=== PATIENT | female | born 1950 | race Caucasian/White ===

== ENCOUNTER 2018-01-04 08:54 | Inpatient (IN) | payer MEDICARE ==
[~2018-01-04] VITALS: Ht 175.3 cm; Wt 74.6 kg
[~2018-01-04 08:54] MED LIST: FENO67CA PO; GLIM2TAB3 PO; PRAV20TA4 PO; QUIN5TAB12 PO; [UNRECOGNIZED DRUG - CODE] PO
[2018-01-04] MEDS ORDERED: ONDANSETRON ODT 4 MG TAB ONE (09:32)
[2018-01-04] MEDS ORDERED: SODIUM CHLORIDE 0.9% 1000ML 1,000 ML IV ONE (09:32)
[2018-01-04 09:35] LABS: BASOPHILS % (AUTO) 0.1 % (0.0-5.0); HEMATOCRIT 44.9 % (36-48); LYMPHOCYTES % (AUTO) 9.9 % (21.0-51.0); MEAN CORPUSCULAR HEMOGLOBIN 29.6 pg (27.0-33.0); MEAN CORPUSCULAR HGB CONC 34.1 g/dL (32.0-36.0); MEAN CORPUSCULAR VOLUME 86.7 fL (79-99); MONOCYTES % (AUTO) 13.3 % (3.0-13.0); NEUTROPHILS % (AUTO) 76.7 % (40.0-77.0); PLATELET COUNT (AUTO) 391 K/uL (130-400); RED BLOOD CELL COUNT(AUTO) 5.18 MIL/uL (4.00-5.50); RED CELL DISTRIBUTION WIDTH 13.7 % (11.0-15.5); WHITE BLOOD COUNT (AUTO) 9.2 K/uL (4.8-10.8)
[2018-01-04 09:50] LABS: RAPID GROUP A STREP POSITIVE (NEGATIVE)
[2018-01-04] MEDS ORDERED: MORPHINE SULFATE 4 MG/1ML SYG ONE (09:51)
[2018-01-04 10:05] LABS: CREATINE KINASE MB < 0.5 ng/mL (0.5-3.6); LIPASE 100 U/L (114-286)
[2018-01-04 10:06] LABS: INR 1.01 (0.85-1.15); PARTIAL THROMBOPLASTIN TIME 25.2 SEC (26.3-35.5); PROTHROMBIN TIME 10.6 SEC (9.6-11.6)
[2018-01-04] MEDS ORDERED: METRONIDAZOLE 500 MG TABLET ONE (10:48)
[2018-01-04] MEDS ORDERED: CEFTRIAXONE SODIUM 1 GM ONE (10:56)
[2018-01-04 10:57] LABS: POTASSIUM 4.8 mmol/L (3.5-5.1)
[2018-01-04] MEDS ORDERED: IOPAMIDOL-370 75 ML VIAL IV ONE (11:23)
[2018-01-04] MEDS: SODIUM CHLORIDE 0.9% 1000ML 1,000 ML IV SCH (13:14)
[2018-01-04] MEDS ORDERED: LIDOCAINE HCL-MPF 1% 2ML VIAL IVP PRN (13:15)
[2018-01-04] MEDS ORDERED: MAG HYDROX/AL HYDROX/SIMETH ES 30 ML SUSP UDCUP PO PRN (13:15)
[2018-01-04] MEDS ORDERED: GUAIFENESIN-DM 200/20 MG 10 ML PO PRN (13:15)
[2018-01-04] MEDS: METRONIDAZOLE 500MG/100ML BAG 100 ML IV SCH ×2 (13:15→19:37)
[2018-01-04] MEDS ORDERED: POTASSIUM CHLORIDE 20MEQ/100ML 100 ML IV PRN (13:15)
[2018-01-04] MEDS ORDERED: LACTULOSE 20 GM/30 ML UDCUP PO PRN (13:15)
[2018-01-04] MEDS ORDERED: HYDRALAZINE HCL 20 MG/ML VIAL IV PRN (13:15)
[2018-01-04] MEDS ORDERED: ACETAMINOPHEN-CODEINE 300/30MG TAB PO PRN ×2 (13:15)
[2018-01-04] MEDS ORDERED: POTASSIUM CHLORIDE 10% ELIXIR 20 MEQ/15 ML UDCUP PO PRN (13:15)
[2018-01-04] MEDS ORDERED: ACETAMINOPHEN 325 MG TAB PO PRN (13:15)
[2018-01-04] MEDS ORDERED: NITROGLYCERIN 0.4 MG SL TAB SL PRN (13:15)
[2018-01-04 15:00] VITALS: BP 140/74
[2018-01-04] MEDS: LEVOFLOXACIN 500 MG/D5W 100 ML 100 ML IV SCH (16:44)
[2018-01-04] MEDS: METOCLOPRAMIDE 10 MG/2 ML VIAL IVP SCH (16:50)
[2018-01-04] MEDS: MORPHINE SULFATE 4 MG/1ML SYG IV PRN (16:50)
[2018-01-04] MEDS ORDERED: FAMOTIDINE/PF 20 MG/2 ML VIAL IV ONE (19:18)
[2018-01-04] MEDS: FAMOTIDINE/PF 20 MG/2 ML VIAL IV SCH (19:37)
[2018-01-04 20:00] VITALS: BP 153/77
[2018-01-04] MEDS ORDERED: LORAZEPAM 2 MG/ML 1 ML VIAL IVP ONE (23:45)
[2018-01-05] VITALS: BP 134/75
[2018-01-05] MEDS ORDERED: LORAZEPAM 2 MG/ML 1 ML VIAL ONE ×2 (01:13→23:09)
[2018-01-05] MEDS: SODIUM CHLORIDE 0.9% 1000ML 1,000 ML IV SCH ×2 (01:19→17:58)
[2018-01-05 01:31] LABS: BILIRUBIN,URINE Negative (NEGATIVE); COLOR,URINE Dark Yellow (YELLOW); GLUCOSE, URINE (UA) >=1000 mg/dL (NEGATIVE); KETONES,URINE 15 mg/dL (NEGATIVE); LEUKOCYTE ESTERASE ,URINE Trace (NEGATIVE); NITRATE,URINE Negative (NEGATIVE); OCCULT BLOOD,URINE Negative (NEGATIVE); PROTEIN,URINE Trace (NEGATIVE)
[2018-01-05 01:33] LABS: APPEARANCE,URINE SLIGHTLY CLOUDY (CLEAR)
[2018-01-05 01:40] LABS: BACTERIA,URINE None Seen /HPF (None Seen); MUCUS,URINE Rare LPF (None Seen); RBC,URINE None Seen /HPF (0-1); SQUAMOUS EPITHELIAL CELL,UR Moderate /LPF (0-2); YEAST,URINE BUDDING None Seen /HPF (None Seen)
[2018-01-05 04:00] VITALS: BP 139/81
[2018-01-05] MEDS: METRONIDAZOLE 500MG/100ML BAG 100 ML IV SCH ×3 (04:20→21:09)
[2018-01-05 05:35] LABS: HEMATOCRIT 34.9 % (36-48); MEAN CORPUSCULAR HEMOGLOBIN 30.2 pg (27.0-33.0); MEAN CORPUSCULAR VOLUME 86.4 fL (79-99); PLATELET COUNT (AUTO) 279 K/uL (130-400); RED BLOOD CELL COUNT(AUTO) 4.05 MIL/uL (4.00-5.50); RED CELL DISTRIBUTION WIDTH 13.9 % (11.0-15.5); WHITE BLOOD COUNT (AUTO) 6.1 K/uL (4.8-10.8)
[2018-01-05 05:48] LABS: CREATININE 0.7 mg/dL (0.5-1.5)
[2018-01-05 07:20] VITALS: BP 141/76
[2018-01-05] MEDS: METOCLOPRAMIDE 10 MG/2 ML VIAL IVP SCH ×3 (09:23→17:00)
[2018-01-05] MEDS: FAMOTIDINE/PF 20 MG/2 ML VIAL IV SCH ×2 (09:23→21:09)
[2018-01-05 11:03] VITALS: BP 132/67
[2018-01-05] MEDS: MORPHINE SULFATE 2 MG/ML 1ML SYG IV PRN ×3 (11:23→22:41)
[2018-01-05] MEDS ORDERED: PANT40TA25 PO (14:43)
[2018-01-05] MEDS ORDERED: METF-526 PO (14:43)
[2018-01-05] MEDS ORDERED: TYL3 PO (14:43)
[2018-01-05] MEDS ORDERED: DOCU100T PO (14:43)
[2018-01-05] MEDS ORDERED: GLIM4TAB3 PO (14:43)
[2018-01-05 15:15] VITALS: BP 134/70
[2018-01-05] MEDS: LEVOFLOXACIN 500 MG/D5W 100 ML 100 ML IV SCH (17:57)
[2018-01-05 20:00] VITALS: BP 134/78
[2018-01-05] MEDS ORDERED: LORAZEPAM 2 MG/ML 1 ML VIAL IVP ONE (22:30)
[2018-01-06] VITALS: BP 155/79
[2018-01-06 04:00] VITALS: BP 134/76
[2018-01-06] MEDS: METRONIDAZOLE 500MG/100ML BAG 100 ML IV SCH ×3 (04:36→21:18)
[2018-01-06] MEDS: SODIUM CHLORIDE 0.9% 1000ML 1,000 ML IV SCH ×2 (04:36→13:14)
[2018-01-06 05:20] LABS: HEMATOCRIT 31.5 % (36-48); MEAN CORPUSCULAR HEMOGLOBIN 29.4 pg (27.0-33.0); MEAN CORPUSCULAR HGB CONC 33.9 g/dL (32.0-36.0); MEAN CORPUSCULAR VOLUME 86.6 fL (79-99); PLATELET COUNT (AUTO) 259 K/uL (130-400); RED BLOOD CELL COUNT(AUTO) 3.64 MIL/uL (4.00-5.50); RED CELL DISTRIBUTION WIDTH 13.4 % (11.0-15.5)
[2018-01-06 05:25] LABS: CREATININE 0.6 mg/dL (0.5-1.5); POTASSIUM 3.5 mmol/L (3.5-5.1)
[2018-01-06 07:08] VITALS: BP 154/81
[2018-01-06] MEDS: METOCLOPRAMIDE 10 MG/2 ML VIAL IVP SCH ×2 (07:30→11:30)
[2018-01-06] MEDS: FAMOTIDINE/PF 20 MG/2 ML VIAL IV SCH ×2 (07:39→20:31)
[2018-01-06 11:05] VITALS: BP 144/78
[2018-01-06] MEDS: ONDANSETRON HCL 4 MG/2 ML VIAL IV PRN (13:11)
[2018-01-06] MEDS ORDERED: PROCALAMINE IV SOLUTION 1,000 ML IV SCH (13:30)
[2018-01-06 15:38] VITALS: BP 145/73
[2018-01-06] MEDS: LEVOFLOXACIN 500 MG/D5W 100 ML 100 ML IV SCH (18:39)
[2018-01-06] MEDS: METOCLOPRAMIDE 10 MG TABLET PO SCH (18:41)
[2018-01-06 20:00] VITALS: BP 146/70
[2018-01-06] MEDS: SIMETHICONE 80 MG TAB.CHEW PO SCH (20:30)
[2018-01-06] MEDS: DOCUSATE SODIUM 100 MG CAP PO SCH (20:31)
[2018-01-06] MEDS ORDERED: LORAZEPAM 2 MG/ML 1 ML VIAL IVP ONE (23:00)
[2018-01-07] VITALS: BP 141/73
[2018-01-07] MEDS: MORPHINE SULFATE 4 MG/1ML SYG IV PRN (02:16)
[2018-01-07 04:00] VITALS: BP 135/69
[2018-01-07] MEDS: METRONIDAZOLE 500MG/100ML BAG 100 ML IV SCH ×3 (04:37→19:37)
[2018-01-07 05:41] LABS: HEMATOCRIT 31.2 % (36-48); MEAN CORPUSCULAR HEMOGLOBIN 30.3 pg (27.0-33.0); MEAN CORPUSCULAR HGB CONC 35.9 g/dL (32.0-36.0); MEAN CORPUSCULAR VOLUME 84.6 fL (79-99); PLATELET COUNT (AUTO) 264 K/uL (130-400); RED BLOOD CELL COUNT(AUTO) 3.69 MIL/uL (4.00-5.50); RED CELL DISTRIBUTION WIDTH 13.4 % (11.0-15.5); WHITE BLOOD COUNT (AUTO) 7.9 K/uL (4.8-10.8)
[2018-01-07 05:51] LABS: CREATININE 0.6 mg/dL (0.5-1.5); POTASSIUM 3.6 mmol/L (3.5-5.1)
[2018-01-07] MEDS: POTASSIUM CHLORIDE 20 MEQ ERTAB PO PRN ×2 (07:13→12:43)
[2018-01-07] MEDS: SIMETHICONE 80 MG TAB.CHEW PO SCH ×4 (07:30→17:48)
[2018-01-07 08:25] VITALS: BP 156/91
[2018-01-07] MEDS ORDERED: PROCALAMINE IV SOLUTION 1,000 ML IV SCH (09:00)
[2018-01-07] MEDS: FAMOTIDINE/PF 20 MG/2 ML VIAL IV SCH ×2 (09:07→19:37)
[2018-01-07] MEDS: METOCLOPRAMIDE 10 MG TABLET PO SCH ×3 (09:07→17:48)
[2018-01-07] MEDS: DOCUSATE SODIUM 100 MG CAP PO SCH ×2 (09:07→19:37)
[2018-01-07 11:48] VITALS: BP 153/78
[2018-01-07] MEDS: ACETAMINOPHEN 325 MG TAB PO PRN ×2 (13:51→21:46)
[2018-01-07] MEDS ORDERED: MORPHINE SULFATE 4 MG/1ML SYG IV PRN (16:00)
[2018-01-07 16:26] VITALS: BP 139/74
[2018-01-07] MEDS: LEVOFLOXACIN 500 MG/D5W 100 ML 100 ML IV SCH (17:47)
[2018-01-07] MEDS: ONDANSETRON HCL 4 MG/2 ML VIAL IV PRN (19:43)
[2018-01-07 20:22] VITALS: BP 155/87
[2018-01-08] VITALS (8 sets, daily range): BP systolic 129–180; BP diastolic 59–97
[2018-01-08] MEDS: METRONIDAZOLE 500MG/100ML BAG 100 ML IV SCH ×3 (04:07→21:26)
[2018-01-08] MEDS: ONDANSETRON HCL 4 MG/2 ML VIAL IV PRN (04:07)
[2018-01-08] MEDS: SIMETHICONE 80 MG TAB.CHEW PO SCH ×4 (07:30→15:57)
[2018-01-08] MEDS: FAMOTIDINE/PF 20 MG/2 ML VIAL IV SCH ×2 (08:28→21:26)
[2018-01-08] MEDS: METOCLOPRAMIDE 10 MG TABLET PO SCH ×3 (08:28→15:57)
[2018-01-08] MEDS: DOCUSATE SODIUM 100 MG CAP PO SCH ×2 (08:29→21:26)
[2018-01-08] MEDS: LEVOFLOXACIN 500 MG/D5W 100 ML 100 ML IV SCH (15:57)
[2018-01-08] MEDS: ACETAMINOPHEN 325 MG TAB PO PRN (21:27)
[2018-01-09 04:00] VITALS: BP 145/80
[2018-01-09 05:08] LABS: MEAN CORPUSCULAR HEMOGLOBIN 29.5 pg (27.0-33.0); MEAN CORPUSCULAR HGB CONC 34.9 g/dL (32.0-36.0); MEAN CORPUSCULAR VOLUME 84.6 fL (79-99); PLATELET COUNT (AUTO) 394 K/uL (130-400); RED BLOOD CELL COUNT(AUTO) 4.26 MIL/uL (4.00-5.50); RED CELL DISTRIBUTION WIDTH 13.9 % (11.0-15.5); WHITE BLOOD COUNT (AUTO) 8.7 K/uL (4.8-10.8)
[2018-01-09 05:20] LABS: CREATININE 0.6 mg/dL (0.5-1.5); POTASSIUM 3.6 mmol/L (3.5-5.1)
[2018-01-09] MEDS: METRONIDAZOLE 500MG/100ML BAG 100 ML IV SCH ×3 (05:34→22:40)
[2018-01-09] MEDS: SIMETHICONE 80 MG TAB.CHEW PO SCH ×2 (07:30→18:13)
[2018-01-09 07:49] VITALS: BP 164/88
[2018-01-09] MEDS: METOCLOPRAMIDE 10 MG TABLET PO SCH ×3 (08:00→18:13)
[2018-01-09] MEDS ORDERED: DIATR MEGLU/DIATRIZOATE SODIUM 30 ML BOTTLE PO ONE ×2 (08:13→08:28)
[2018-01-09] MEDS: FAMOTIDINE/PF 20 MG/2 ML VIAL IV SCH ×2 (09:00→22:32)
[2018-01-09 11:33] VITALS: BP 158/80
[2018-01-09] MEDS: DOCUSATE SODIUM 100 MG CAP PO SCH ×2 (13:03→22:32)
[2018-01-09] MEDS: LEVOFLOXACIN 500 MG/D5W 100 ML 100 ML IV SCH (14:19)
[2018-01-09] MEDS: POTASSIUM CHLORIDE 20 MEQ ERTAB PO PRN ×2 (14:30→18:12)
[2018-01-09 16:26] VITALS: BP 165/83
[2018-01-09 20:00] VITALS: BP 157/76
[2018-01-09] MEDS: ACETAMINOPHEN 325 MG TAB PO PRN (22:31)
[2018-01-09 23:30] VITALS: BP 154/66
[2018-01-10 04:00] VITALS: BP 145/70
[2018-01-10] MEDS: METRONIDAZOLE 500MG/100ML BAG 100 ML IV SCH ×3 (06:40→20:11)
[2018-01-10] MEDS: SIMETHICONE 80 MG TAB.CHEW PO SCH ×3 (06:41→17:39)
[2018-01-10 07:41] VITALS: BP 149/71
[2018-01-10] MEDS ORDERED: KETOROLAC TROMETHAMINE 15MG/ML IV PRN (09:15)
[2018-01-10] MEDS ORDERED: SIMETHICONE 80 MG TAB.CHEW ONE (09:37)
[2018-01-10] MEDS: DOCUSATE SODIUM 100 MG CAP PO SCH ×2 (09:38→20:11)
[2018-01-10] MEDS: FAMOTIDINE/PF 20 MG/2 ML VIAL IV SCH ×2 (09:38→20:11)
[2018-01-10] MEDS: METOCLOPRAMIDE 10 MG TABLET PO SCH ×3 (09:38→17:39)
[2018-01-10 11:32] VITALS: BP 124/78
[2018-01-10] MEDS: LEVOFLOXACIN 500 MG/D5W 100 ML 100 ML IV SCH (13:46)
[2018-01-10 16:26] VITALS: BP 154/84
[2018-01-10 20:00] VITALS: BP 143/86
[2018-01-11] VITALS: BP 145/83
[2018-01-11 04:00] VITALS: BP 161/79
[2018-01-11] MEDS: METRONIDAZOLE 500MG/100ML BAG 100 ML IV SCH (04:13)
[2018-01-11 05:05] LABS: CREATININE 0.6 mg/dL (0.5-1.5); POTASSIUM 3.6 mmol/L (3.5-5.1)
[2018-01-11 07:30] VITALS: BP 136/78
[2018-01-11] MEDS: FAMOTIDINE/PF 20 MG/2 ML VIAL IV SCH (08:53)
[2018-01-11] MEDS: SIMETHICONE 80 MG TAB.CHEW PO SCH ×2 (08:54→11:37)
[2018-01-11] MEDS: POTASSIUM CHLORIDE 20 MEQ ERTAB PO PRN ×2 (08:55→11:37)
[2018-01-11] MEDS: METOCLOPRAMIDE 10 MG TABLET PO SCH ×2 (08:55→11:37)
[2018-01-11] MEDS: DOCUSATE SODIUM 100 MG CAP PO SCH (08:56)
[2018-01-11 11:00] VITALS: BP 127/83
== END 2018-01-11 12:25 | disposition home or self-care (01) | DRG 389 ==
LOC: EDH 08:54 → EDHIP 13:09 → 4BH 14:43
PROVIDERS: ADMIT Internal Medicine; ATTEND Internal Medicine
DX: K91.31 Postprocedural partial intestinal obstruction (principal); E44.0 Moderate protein-calorie malnutrition; E11.9 Type 2 diabetes mellitus without complications; E78.5 Hyperlipidemia, unspecified; E86.0 Dehydration; I10 Essential (primary) hypertension; Y83.8 Other surgical procedures as the cause of abnormal reaction of the patient, or of later complication, without mention of misadventure at the time of the procedure; Y73.3 Surgical instruments, materials and gastroenterology and urology devices (including sutures) associated with adverse incidents; Z90.49 Acquired absence of other specified parts of digestive tract; Z90.710 Acquired absence of both cervix and uterus; Z68.24 Body mass index [BMI] 24.0-24.9, adult; Z85.820 Personal history of malignant melanoma of skin
CPT/HCPCS: 36415; 71045; 74018; 74177; 74250; 80048; 81001; 82553; 82948; 83605; 83690; 84484; 85025; 85027; 85610; 85730; 87804; 87880; A4218; J0360; J0696; J1956; J2060; J2270; J2405; J2765; J3480; J3490; J7030; Q9963; Q9967